=== PATIENT | female | born 1950 | race Caucasian/White ===

== ENCOUNTER 2025-06-27 13:00 | Outpatient (RCR) | payer MEDICARE, SELFPAY | END 2025-06-27 13:36 | disposition home or self-care (01) | PROVIDERS: PCP Physician Assistant; Visit Provider Student in an Organized Health Care Education/Training Program | DX: M26.622 Arthralgia of left temporomandibular joint (principal); Z51.89 Encounter for other specified aftercare | CPT/HCPCS: 97012; 97110; 97140; 97161 ==